=== PATIENT | male | born 2000 | race Two or more races ===

== ENCOUNTER 2025-11-15 15:29 | Emergency (ER) | payer MEDICAID, OTHER ==
[~2025-11-15] VITALS: Ht 165.1 cm; Wt 78.5 kg
[2025-11-15 16:08] VITALS: BP 109/82; PULSE 96; RESP 18; TEMP 99.3; O2SAT 96
[2025-11-15] MEDS ORDERED: CLINDAMYCIN 600MG IV 50 ML IV ONE (16:15)
--- NOTE | 2025-11-15 16:16 | ED.PDOC ---
Eye-HPI HPI Comments A 25 YEAR OLD MALE PRESENTS TO THE ED WITH COMPLAINT OF SORE THROAT AND N/V. PATIENT STATES HE HAS BEEN EXPERIENCING A SORE THROAT THAT IS WORSE WHEN SWALLOWING FOR THE PAST 6 DAYS AND BEGAN TO EXPERIENCE NAUSEA AND VOMITING FOR THE PAST 2 DAYS. PATIENT NOTES HE HAS BEEN UNABLE TO HOLD ANYTHING DOWN A RESULT OF HIS NAUSEA AND VOMITING. PATIENT DENIES FEVER, CHILLS, SHORTNESS OF BREATH, CHEST PAIN, ABDOMINAL PAIN, HEADACHE, OR OTHER COMPLAINTS. NO OTHER SYMPTOMS OR MODIFYING FACTORS AT THIS TIME. PATIENT IS ALERT, ORIENTED X 4, AND HAS STEADY GAIT. Chief Complaint: Sore Throat Time Seen by MD: 15:40 Reviewed Notes: Nurses Notes, Medications, Allergies Allergies: Coded Allergies: NO KNOWN ALLERGIES (Unverified , 11/15/25) Information Source: Patient Mode of Arrival: Ambulatory Timing: Days Duration: Since onset, Days Prehospital treatment: None Quality: Pain, Red Lids: Normal Conjunctiva: Normal Cornea: Normal Pupils: Normal EOM: Normal Fundus: Normal Slit lamp exam: Normal Anterior chamber: Normal Mouth Location: Pharynx Mouth: Normal ENT Ear Exam: Normal, Normal, Normal Nose: Normal Sinuses: Normal Oropharynx: Tonsillar hypertrophy, Red, Exudate Onset: Spontaneous Throat Exposed to: None History of: None Last Tetanus: Unknown Modifying factors: Nothing Associated signs and symptoms: Nasal Symptoms, Sore Throat, Muffled Voice Past Medical History PAST MEDICAL HISTORY: Denies Surgical History: Denies all surgeries Family History Family History: Reviewed,noncontributory to illness Social History Smoker: Non-Smoker Alcohol: Denies ETOH Use Drugs: Denies Drug Use Lives In: Home Constitutional: reports: fever; denies: chills, diaphoresis, fatigue, malaise, sweats, weakness, others EENTM: reports: nose congestion, throat pain, throat swelling; denies: blurred vision, double vision, ear bleeding, ear discharge, ear drainage, ear pain, ear ringing, eye pain, eye redness, hearing loss, mouth pain, mouth swelling, nasal discharge, nose bleeding, nose pain, photophobia, tearing, voice changes, others Respiratory: denies: cough, hemoptysis, orthopnea, SOB at rest, shortness of breath, SOB with excertion, stridor, wheezing, others Cardiovascular: denies: chest pain, dizzy spells, diaphoresis, Dyspnea on exertion, edema, irregular heart beat, left arm pain, lightheadedness, palpitations, PND, syncope, others Gastrointestinal: reports: nausea, vomiting; denies: abdomen distended, abdominal pain, blood streaked bowels, constipated, diarrhea, dysphagia, difficulty swallowing, hematemesis, melena, poor appetite, poor fluid intake, rectal bleeding, rectal pain, others Genitourinary: denies: burning, dysuria, flank pain, frequency, hematuria, incontinence, penile discharge, penile sore, pain, testicle pain, testicle swelling, urgency, others Neurological: denies: dizziness, fainting, headache, left sided numbness, left sided weakness, numbness, paresthesia, pre-existing deficit, right sided numbness, right sided weakness, seizure, speech problems, tingling, tremors, weakness, others Musculoskeletal: denies: back pain, gout, joint pain, joint swelling, muscle pain, muscle stiffness, neck pain, others Integumetry: denies: bruises, change in color, change in hair/nails, dryness, laceration, lesions, lumps, rash, wounds, others Allergic/Immunocompromised: denies: Difficulty Healing, Frequent Infections, Hives, Itching, others Hematologic/Lymphatic: denies: anemia, blood clots, easy bleeding, easy bruising, swollen glands, others Endocrine: denies: excessive hunger, excessive sweating, excessive thirst, excessive urination, flushing, intolerance to cold, intolerance to heat, unexplained weight gain, unexplained weight loss, others Psychiatric: denies: anxiety, bipolar disorder, depression, hopeless, panic disorder, schizophrenia, sleepless, suicidal, others All Other Systems: Reviewed and Negative Physical Exam General Appearance: No Apparent Distress, Normal HEENT: PERRL/EOMI, Pharyngeal Erythema (TONSILLAR SWELLING WITH EXUDATES, +STREP TONSILLITIS. ), TMs Normal Neck: Full Range of Motion, Lymphadenopathy (R), Normal Inspection, Supple Respiratory: Chest Non-Tender, Lungs Clear, No Accessory Muscle Use, No Respiratory Distress, Normal Breath Sounds Cardiovascular: No Edema, No JVD, No Murmur, No Gallop, Normal Peripheral Pulses, Regular Rate/Rhythm Breast Exam: Deferred Gastrointestinal: No Organomegaly, Non Tender, No Pulsatile Mass, Normal Bowel Sounds, Soft Genitalia: Deferred Pelvic: Deferred Rectal: Deferred Extremities: No calf tenderness, Normal capillary refill, Normal inspection, Normal range of motion, Non-tender, No pedal edema Musculoskeletal : Apperance: Normal Neurologic: Alert, teachers aide II-XII nml as Tested, No Motor Deficits, Normal Affect, Normal Mood, No Sensory Deficits Cerebellar Function: Normal Reflexes: Normal Skin: Dry, Normal Color, Warm Peripheral Pulses: 2+ carotid (R), 2+ carotid (L) Lymphatic: Cervical Adenopathy (R) Was a procedure done? Was a procedure done?: No EENT DIFF Eye: N/A Ear: N/A Nose: N/A Mouth: N/A Sore Throat: Pharyngitis, Streptococcal, Viral Pharyngitis, URI X-Ray, Labs, Meds, VS Vital Signs Date Time Temp Pulse Resp B/P (MAP) Pulse Ox O2 Delivery O2 Flow Rate FiO2 11/15/25 16:08 96 18 96 Room Air 11/15/25 16:08 99.3 96 18 109/82 (91) 96 99.3 11/15/25 15:32 99.3 96 18 109/82 96 99.3 Lab Test 11/15/25 16:18 Range/Units Group A Streptococcus Rapid Positive Current Medications Medications (Trade) Dose Ordered Sig/Ivanna Route Start Time Stop Time Status Last Admin Sodium Chloride 1,000 ml @ 1,000 mls/hr Q1H ONCE IV 11/15/25 16:15 11/15/25 17:14 DC 11/15/25 16:36 Ceftriaxone Sodium 50 ml @ 100 mls/hr ONCE ONCE IV 11/15/25 16:15 11/15/25 16:44 DC 11/15/25 16:50 Methylprednisolone Sodium Succinate (Solu Medrol) 125 mg ONCE ONCE IV 11/15/25 16:15 11/15/25 16:16 DC 11/15/25 16:50 Ondansetron HCl (Zofran) 4 mg ONCE ONCE IV 11/15/25 16:15 11/15/25 16:16 DC 11/15/25 17:11 X-Ray, Labs, Meds, VS Comment EXTERNAL MEDICAL RECORDS REVIEWED: [NONE] INDEPENDENT HISTORIANS: [NONE] SOCIAL DETERMINANTS OF HEALTH: [NONE] LABS ORDERED: STREP A RAPID REVIEWED AND INTERPRETED RESULTS: STREP A POSITIVE IMAGING ORDERED: NONE TREATMENTS ORDERED: NS 1L IV, ZOFRAN 4 MG IV, ROCEPHIN 1 G IV PROCEDURES PERFORMED: NONE CRITICAL CARE TIME: NONE I HAVE DISCUSSED THE PATIENT WITH THE ATTENDING PHYSICIAN DR. WELLS AND HE AGREES WITH THE PATIENT'S PLAN OF CARE AND DISPOSITION. BASED ON HISTORY OF PRESENT ILLNESS, AND PHYSICAL EXAM, PATIENT WILL BE DISCHARGED HOME. DISCUSSED PLAN FOR DISCHARGE HOME WITH RX [PENICILLIN VK AND 2% VISCOUS LIDOCAINE]. MEDICATION WARNINGS GIVEN. SHARED DECISION MAKING: PATIENT INSTRUCTED TO FOLLOW UP WITH PRIMARY CARE PROVIDER IN 1-2 DAYS FOR RE-EVALUATION OF SYMPTOMS. PATIENT VERBALIZES UNDERSTANDING TO RETURN TO ED FOR NEW OR WORSENING SYMPTOMS OR IF FOLLOW UP WITH PCP CANNOT BE OBTAINED. PATIENT FEELS COMFORTABLE GOING HOME AT THIS TIME. ALL QUESTIONS ADDRESSED AT TIME OF DISCHARGE. Time of 1ST Reevaluation: 17:30 Reevaluation 1ST: Improved Patient Education/Counseling: Diagnosis, Treatment, Need For Follow Up Family Education/Counseling: Diagnosis, Treatment, Need For Follow Up Medical Screening: No EMC Exist At This Time SEPSIS Sepsis Screen Date sepsis recognized/suspect: Nov 15, 2025 Time Sepsis recognized/suspect: 1533 Recent Procedure: No On Antibiotic Therapy: No Respiratory Rate >20: No Heart Rate >90: Yes Temp<36 C (96.8 F) or >38.3 C: No SBP <90 or MAP <65 mmHG: No New Acute Mental Status Change: No Is the patient on CPAP, BIPAP,: No Physician Orders Heplock Iv (11/15/25 ) Vital Signs Date Time Temp Pulse Resp B/P (MAP) Pulse Ox O2 Delivery O2 Flow Rate FiO2 11/15/25 16:08 96 18 96 Room Air 11/15/25 16:08 99.3 96 18 109/82 (91) 96 99.3 11/15/25 15:32 99.3 96 18 109/82 96 99.3 Medications Medications Dose Ordered Sig/Ivanna Route Start Time Stop Time Status Last Admin Dose Admin Ceftriaxone Sodium 50 ml @ 100 mls/hr ONCE ONCE IV 11/15/25 16:15 11/15/25 16:44 DC 11/15/25 16:50 Methylprednisolone Sodium Succinate 125 mg ONCE ONCE IV 11/15/25 16:15 11/15/25 16:16 DC 11/15/25 16:50 Ondansetron HCl 4 mg ONCE ONCE IV 11/15/25 16:15 11/15/25 16:16 DC 11/15/25 17:11 Sodium Chloride 1,000 ml @ 1,000 mls/hr Q1H ONCE IV 11/15/25 16:15 11/15/25 17:14 DC 11/15/25 16:36 Departure 1 Departure Time of Disposition: 17:30 Impression: Primary Impression: Acute streptococcal tonsillitis Qualified Codes: J03.00 - Acute streptococcal tonsillitis, unspecified Disposition: HOME / SELF CARE / HOMELESS Condition: Stable Additional Instructions: FOLLOW-UP WITH PCP IN 1 TO 2 DAYS. TAKE MEDICATIONS PRESCRIBED. RETURN TO ED FOR ANY NEW OR WORSENING SYMPTOMS. e-Prescriptions Lidocaine HCl (Mouth-Throat) (Lidocaine HCl Viscous) 2 % Lin 10 ML MT TID, #100 ML Prov: TIERRA MCKEE 11/15/25 Penicillin V Potassium (Veetids) 500 Mg Tab 1 TAB PO QID, #28 TAB Prov: TIERRA MCKEE 11/15/25 Discharged With: Self Critical Care Note Critical Care Time?: No Stability Stability form required: No I personally scribed for TIERRA MCKEE ([email or web address]) on 11/15/25 at 16:16. Electronically submitted by Mariusz Judge ([employer]). I personally scribed for TIERRA MCKEE ([email or web address]) on 11/15/25 at 16:22. Electronically submitted by Mariusz Judge ([employer]). I personally scribed for TIERRA MCKEE ([email or web address]) on 11/15/25 at 17:06. Electronically submitted by Mariusz Judge ([employer]). TIERRA MCKEE Nov 15, 2025 16:16
[2025-11-15] MEDS: SODIUM CHLORIDE 0.9% 1,000 ML IV ONE (16:36)
[2025-11-15] MEDS: methylPREDNISolone SOD SUCC 125 MG/2 ML VL IV ONE (16:50)
[2025-11-15 16:54] LABS: Rapid Strep A Screen-Throat Positive
[2025-11-15] MEDS: ONDANSETRON HCL 4 MG/2 ML VIAL IV ONE (17:11)
[2025-11-15] MEDS ORDERED: PENI500T2 PO (17:24)
[2025-11-15] MEDS ORDERED: LIDO2SOL26 MT (17:24)
== END 2025-11-15 17:29 | disposition home or self-care (01) ==
LOC: ER 15:29
DX: J03.00 Acute streptococcal tonsillitis, unspecified (principal); Z79.899 Other long term (current) drug therapy
CPT/HCPCS: 87880; 96365; 96375; 99284; J0696; J2405; J2919

== ENCOUNTER 2025-11-22 13:21 | Emergency (ER) | payer MEDICAID ==
[~2025-11-22] VITALS: Ht 165.1 cm; Wt 76.2 kg
[~2025-11-22 13:21] MED LIST: LIDO2SOL26 MT; PENI500T2 PO
--- NOTE | 2025-11-22 14:00 | ED.PDOC ---
GI ASSESSMENT HPI Comments 25y M who presents to the ED for chief complaint of nausea and vomiting. Pt states he has been having nausea and vomiting for the past 2x days. Pt states he has not been able to keep liquids or solids down. Pt states he does smoke Marijuana and smoked today to help relieve his symptoms but states it did not help. Pt otherwise has stable vitals in the ED. Pt denies any sick contacts or changes to diet. Chief Complaint: Nausea/Vomiting Time Seen by MD: 13:58 Reviewed Notes: Medications, Allergies Allergies: Coded Allergies: NO KNOWN ALLERGIES (Unverified , 11/15/25) Home Meds Active Scripts Ondansetron Odt 4MG Tab (ZOFRAN PO) 4 Mg Tb, 4 MG PO DAILY for 5 Days, #5 TAB ODT TAB-DISSOLVE IN MOUTH, THEN SWALLOW Prov:JASON BUI MD 11/22/25 Lidocaine HCl (Mouth-Throat) (Lidocaine HCl Viscous) 2 % Lin, 10 ML MT TID, #100 ML Prov:TIERRA MCKEE 11/15/25 Penicillin V Potassium (Veetids) 500 Mg Tab, 1 TAB PO QID, #28 TAB Prov:TIERRA MCKEE 11/15/25 Information Source: Patient Mode of Arrival: Ambulatory Brought in by: self Past Medical History PAST MEDICAL HISTORY: Denies Surgical History: Denies all surgeries Family History Family History: Reviewed,noncontributory to illness Social History Smoker: Non-Smoker Alcohol: Occasionally Drugs: Marijuana Lives In: Home Constitutional: denies: chills, diaphoresis, fatigue, fever, malaise, sweats, weakness, others EENTM: denies: blurred vision, double vision, ear bleeding, ear discharge, ear drainage, ear pain, ear ringing, eye pain, eye redness, hearing loss, mouth pain, mouth swelling, nasal discharge, nose bleeding, nose congestion, nose pain, photophobia, tearing, throat pain, throat swelling, voice changes, others Respiratory: denies: cough, hemoptysis, orthopnea, SOB at rest, shortness of breath, SOB with excertion, stridor, wheezing, others Cardiovascular: denies: chest pain, dizzy spells, diaphoresis, Dyspnea on exertion, edema, irregular heart beat, left arm pain, lightheadedness, palpitations, PND, syncope, others Gastrointestinal: reports: nausea, vomiting; denies: abdomen distended, abdominal pain, blood streaked bowels, constipated, diarrhea, dysphagia, difficulty swallowing, hematemesis, melena, poor appetite, poor fluid intake, rectal bleeding, rectal pain, others Genitourinary: denies: burning, dysuria, flank pain, frequency, hematuria, incontinence, penile discharge, penile sore, pain, testicle pain, testicle swell ing, urgency, others Neurological: denies: dizziness, fainting, headache, left sided numbness, left sided weakness, numbness, paresthesia, pre-existing deficit, right sided numbness, right sided weakness, seizure, speech problems, tingling, tremors, weakness, others Musculoskeletal: denies: back pain, gout, joint pain, joint swelling, muscle pain, muscle stiffness, neck pain, others Integumetry: denies: bruises, change in color, change in hair/nails, dryness, laceration, lesions, lumps, rash, wounds, others Allergic/Immunocompromised: denies: Difficulty Healing, Frequent Infections, Hives, Itching, others Hematologic/Lymphatic: denies: anemia, blood clots, easy bleeding, easy bruising, swollen glands, others Endocrine: denies: excessive hunger, excessive sweating, excessive thirst, excessive urination, flushing, intolerance to cold, intolerance to heat, unexplained weight gain, unexplained weight loss, others Psychiatric: denies: anxiety, bipolar disorder, depression, hopeless, panic disorder, schizophrenia, sleepless, suicidal, others All Other Systems: Reviewed and Negative Physical Exam General Appearance: Moderate Distress HEENT: Normal ENT Inspection, Pharynx Normal, TMs Normal Neck: Full Range of Motion, Non-Tender, Normal, Normal Inspection Respiratory: Chest Non-Tender, Lungs Clear, No Accessory Muscle Use, No Respiratory Distress, Normal Breath Sounds Cardiovascular: No Edema, No JVD, No Murmur, No Gallop, Normal Peripheral Pulses, Regular Rate/Rhythm Breast Exam: Deferred Gastrointestinal: No Organomegaly, Non Tender, No Pulsatile Mass, Normal Bowel Sounds, Soft Genitalia: Deferred Pelvic: Deferred Rectal: Deferred Extremities: No calf tenderness, Normal capillary refill, Normal inspection, Normal range of motion, Non-tender, No pedal edema Musculoskeletal : Apperance: Normal Neurologic: Alert, clarifying plant operator II-XII nml as Tested, No Motor Deficits, Normal Affect, Normal Mood, No Sensory Deficits Cerebellar Function: Normal Reflexes: Normal Skin: Dry, Normal Color, Warm Peripheral Pulses: 3+ Radial (R), 3+ Radial (L) Lymphatic: No Adenopathy Was a procedure done? Was a procedure done?: No GI differential Dx Differential Diagnosis: Constipation, Diverticular disease, Esophagitis, Gastritis/PUD, Gastroenteritis, Pancreatitis, Dehydration, Electrolyte Imbalance, Food Poisoning, Bacterial, Viral X-Ray, Labs, Meds, VS Vital Signs Date Time Temp Pulse Resp B/P (MAP) Pulse Ox O2 Delivery O2 Flow Rate FiO2 11/22/25 13:22 98.0 71 20 105/75 99 98.0 Lab Test 11/22/25 13:55 11/22/25 13:47 Range/Units Urine Color Pending Urine Clarity Pending Urine pH Pending Urine Specific Reserve Pending Urine Protein Pending Urine Ketones Pending Urine Blood Pending Urine Nitrite Pending Urine Bilirubin Pending Urine Urobilinogen Pending Urine Leukocyte Esterase Pending Urine RBC Pending Urine Microscopic WBC Pending Urine Squamous Epithelial Cells Pending Urine Bacteria Pending Urine Glucose Pending White Blood Count 8.0 4.4-10.8 10^3/uL Red Blood Count 5.05 4.5-5.90 10^6/uL Hemoglobin 17.0 13.5-17.5 g/dL Hematocrit 47.8 41.0-53.0 % Mean Corpuscular Volume 94.8 80.0-100.0 fL Mean Corpuscular Hemoglobin 33.8 H 28.0-32.0 pg Mean Corpuscular Hemoglobin Concent 35.6 32.0-36.0 g/dL Red Cell Distribution Width 12.6 11.8-14.3 % Platelet Count 419 140-450 10^3/uL Mean Platelet Volume 7.7 6.9-10.8 fL Neutrophils (%) (Auto) 63.3 37.0-80.0 % Lymphocytes (%) (Auto) 27.3 10.0-50.0 % Monocytes (%) (Auto) 8.4 0.0-12.0 % Eosinophils (%) (Auto) 0.5 0.0-7.0 % Basophils (%) (Auto) 0.5 0.0-2.0 % Neutrophils # (Auto) 5.0 1.6-8.6 10 ^3/uL Lymphocytes # (Auto) 2.2 0.4-5.4 10 ^3/uL Monocytes # (Auto) 0.7 0-1.3 10 ^3/uL Eosinophils # (Auto) 0 0-0.8 10 ^3/uL Basophils # (Auto) 0 0-0.2 10 ^3/uL Nucleated Red Blood Cells 0.1 % Sodium Level 141 136-145 mmol/L Potassium Level 3.7 3.5-5.1 mmol/L Chloride Level 102 98-107 mmol/L Carbon Dioxide Level 25 20-31 mmol/L Anion Gap 14 5-15 Blood Urea Nitrogen 9 9-23 mg/dL Creatinine 1.23 0.700-1.30 mg/dL Glomerular Filtration Rate Calc 83 >90 mL/min BUN/Creatinine Ratio 7.3 L 10.0-20.0 Serum Glucose 86 74-106 mg/dL Calcium Level 9.9 8.7-10.4 mg/dL Current Medications Medications (Trade) Dose Ordered Sig/Ivanna Route Start Time Stop Time Status Last Admin Sodium Chloride 1,000 ml @ 1,000 mls/hr Q1H ONCE IV 11/22/25 13:45 11/22/25 14:44 DC 11/22/25 15:05 Patient alert. Came in because of nausea vomiting. Vitals stable. Answering questions. WBC within normal limits pain Hemoglobin within normal limits. Electrolytes within normal limits. Abdomen is soft nontender. Possible gastroenteritis. Was given prescription of Zofran. Explained to the patient. Was told to follow up with his primary care physician. Was told to come back if there is any problem. Time of 1ST Reevaluation: 14:30 Reevaluation 1ST: Improved Patient Education/Counseling: Diagnosis, Treatment Family Education/Counseling: No Family Present SEPSIS Sepsis Screen Date sepsis recognized/suspect: Nov 22, 2025 Time Sepsis recognized/suspect: 1324 Recent Procedure: No On Antibiotic Therapy: No Respiratory Rate >20: No Heart Rate >90: No Temp<36 C (96.8 F) or >38.3 C: No SBP <90 or MAP <65 mmHG: No New Acute Mental Status Change: No Is the patient on CPAP, BIPAP,: No Physician Orders Urinalysis (11/22/25 13:42) Vital Signs Date Time Temp Pulse Resp B/P (MAP) Pulse Ox O2 Delivery O2 Flow Rate FiO2 11/22/25 13:22 98.0 71 20 105/75 99 98.0 Laboratory Tests Test 11/22/25 13:47 White Blood Count 8.0 10^3/uL (4.4-10.8) Medications Medications Dose Ordered Sig/Ivanna Route Start Time Stop Time Status Last Admin Dose Admin Sodium Chloride 1,000 ml @ 1,000 mls/hr Q1H ONCE IV 11/22/25 13:45 11/22/25 14:44 DC 11/22/25 15:05 Departure 1 Departure Time of Disposition: 14:56 Impression: Primary Impression: Gastroenteritis Disposition: 01 HOME / SELF CARE / HOMELESS Condition: Good e-Prescriptions Ondansetron Odt 4MG Tab (ZOFRAN PO) 4 Mg Tb 4 MG PO DAILY for 5 Days, #5 TAB ODT TAB-DISSOLVE IN MOUTH, THEN SWALLOW Prov: JASON BUI MD 11/22/25 Discharged With: Self Critical Care Note Critical Care Time?: No Stability Stability form required: No Heart Score Heart Score: Heart Score Response (Comments) Value History N/A 0 EKG N/A 0 Age N/A 0 Risk Factors N/A 0 Troponin N/A 0 Total 0 I personally scribed for JASON BUI MD ([email or web address]) on 11/22/25 at 13:59. Electronically submitted by Nicky Farr ([email or web address]). JASON BUI MD Nov 22, 2025 13:59
[2025-11-22 14:08] LABS: Hematocrit 47.8 % (41.0-53.0); Hemoglobin 17.0 g/dL (13.5-17.5); Mean Corpuscular Hemoglobin 33.8 pg (28.0-32.0); Mean Corpuscular Volume 94.8 fL (80.0-100.0); Nucleated Red Blood Cells % 0.1 %
[2025-11-22 14:12] LABS: Chloride 102 mmol/L (98-107); Potassium 3.7 mmol/L (3.5-5.1); Sodium 141 mmol/L (136-145)
[2025-11-22 14:13] LABS: Anion Gap 14 (5-15); Carbon Dioxide 25 mmol/L (20-31)
[2025-11-22 14:14] LABS: Calcium 9.9 mg/dL (8.7-10.4)
[2025-11-22 14:18] LABS: BUN/Creatinine Ratio 7.3 (10.0-20.0); Blood Urea Nitrogen 9 mg/dL (9-23); Glucose 86 mg/dL (74-106)
[2025-11-22] MEDS ORDERED: ZOFR4T PO (14:56)
[2025-11-22] MEDS: SODIUM CHLORIDE 0.9% 1,000 ML IV ONE (15:05)
[2025-11-22 15:31] LABS: Urine Protein, UAD TRACE (Negative)
[2025-11-22 16:15] VITALS: BP 115/72; PULSE 88; RESP 16; TEMP 98.4; O2SAT 100
== END 2025-11-22 16:26 | disposition home or self-care (01) ==
LOC: ER 13:21
DX: K52.9 Noninfective gastroenteritis and colitis, unspecified (principal); F17.200 Nicotine dependence, unspecified, uncomplicated; Z79.899 Other long term (current) drug therapy
CPT/HCPCS: 36415; 80048; 81001; 85025; 96360; 99283; J7030